=== PATIENT | male | born 1960 | race Caucasian/White ===

== ENCOUNTER 2022-06-06 18:42 | Emergency (ER) | payer OTHER ==
[2022-06-06] MEDS ORDERED: NORCO 5-325 TA1 EACH PO (20:34)
== END 2022-06-06 20:35 | disposition home or self-care (01) ==
LOC: FER 18:42
DX: S99.911A Unspecified injury of right ankle, initial encounter (principal); J45.909 Unspecified asthma, uncomplicated; X58.XXXA Exposure to other specified factors, initial encounter; Y93.67 Activity, basketball; Y92.009 Unspecified place in unspecified non-institutional (private) residence as the place of occurrence of the external cause
CPT/HCPCS: 73610